=== PATIENT | male | born 1995 | race Caucasian/White ===

== ENCOUNTER 2022-03-22 10:44 | Emergency (ER) | payer MEDICAID ==
[~2022-03-22] VITALS: Ht 175.3 cm; Wt 77.3 kg
[2022-03-22 11:12] VITALS: BP 130/71
[2022-03-22] MEDS ORDERED: PREG50CA PO (12:35)
== END 2022-03-22 12:50 | disposition home or self-care (01) ==
LOC: ER 10:45
DX: M54.9 Dorsalgia, unspecified (principal); M54.6 Pain in thoracic spine; F17.200 Nicotine dependence, unspecified, uncomplicated; F12.10 Cannabis abuse, uncomplicated; Z90.49 Acquired absence of other specified parts of digestive tract
CPT/HCPCS: 72070; 99283

== ENCOUNTER 2022-10-25 10:55 | Emergency (ER) | payer MEDICAID, OTHER ==
[~2022-10-25] VITALS: Ht 177.8 cm; Wt 77.3 kg
[~2022-10-25 10:55] MED LIST: PREG50CA PO
[2022-10-25 11:10] VITALS: TEMP 98.9
[2022-10-25 12:58] VITALS: BP 109/65; PULSE 46; RESP 16; O2SAT 98
== END 2022-10-25 13:46 | disposition home or self-care (01) ==
LOC: ER 10:55
DX: R42 Dizziness and giddiness (principal); R86.0 Abnormal level of enzymes in specimens from male genital organs; R11.2 Nausea with vomiting, unspecified; Z90.49 Acquired absence of other specified parts of digestive tract
CPT/HCPCS: 99283